=== PATIENT | female | born 1980 | race Caucasian/White ===

== ENCOUNTER 2020-10-05 20:49 | Emergency (ER) | payer BC ==
[~2020-10-05] VITALS: Ht 170.2 cm; Wt 88.5 kg
[2020-10-05 20:55] VITALS: BP_SYST 137
[2020-10-05] MEDS ORDERED: ALBU8.5H8 INH (21:09)
[2020-10-05] MEDS ORDERED: FLUT1BLS10 (21:09)
[2020-10-05 21:39] VITALS: BP_SYST 137
== END 2020-10-05 21:39 | disposition home or self-care (01) ==
LOC: SED 20:49
DX: H57.02 Anisocoria (principal); J45.909 Unspecified asthma, uncomplicated
CPT/HCPCS: 99281